=== PATIENT | male | born 1960 | race Two or more races ===

== ENCOUNTER 2024-06-04 09:44 | Emergency (ER) | payer OTHER ==
[~2024-06-04] VITALS: Ht 154.9 cm; Wt 86.2 kg
[2024-06-04 11:23] LABS: HEMATOCRIT 38.5 % (39.0-48.0); HEMOGLOBIN 13.1 g/dL (13-16.00); MEAN CELL VOLUME 92.9 fL (80.0-100.00); MEAN CORPUSCULAR HEMOGLOBIN 31.5 pg (27.00-32.0); MEAN CORPUSCULAR HGB CONC 33.9 g/dl (32.0-36.0); PLATELET COUNT 225 K/uL (150-450); RED BLOOD COUNT 4.15 M/uL (4.00-6.00); RED CELL DISTRIBUTION WIDTH 13.9 % (11.5-14.5)
[2024-06-04 11:46] LABS: PH,URINE 5.5 (5.0-8.0); URINE APPEARANCE Cloudy; URINE BILIRRUBIN Negative (NEGATIVE); URINE BLOOD Large; URINE COLOR Dark Yellow; URINE GLUCOSE Negative (NEGATIVE); URINE KETONE Trace (NEGATIVE); URINE LEUKOCYTE Moderate; URINE NITRATE Positive
[2024-06-04 11:51] LABS: URINE CAST 1.83 uL (0.0-1.40); URINE EPITHELIAL CELLS 13.7 uL (0.0-38.8); URINE RBC 111.4 uL (0.0-20.8)
[2024-06-04 12:12] LABS: CALCIUM 8.8 mg/dL (8.5-10.1); CREATININE SERUM 1.3 mg/dL (0.70-1.30); GFR 55.94; POTASSIUM 4.44 mEq/L (3.5-5.1)
[2024-06-04 12:14] LABS: URINE BACTERIA > 9821.5 uL (0.0-1933); URINE PROTEIN 100 (NEGATIVE)
[2024-06-04] MEDS ORDERED: CIPROFLOXACIN IN 5 % DEXTROSE 400 MG/200 ML PIGGYBAG IV STA (12:51)
[2024-06-04] MEDS ORDERED: CIPROFLOXACIN IN 5 % DEXTROSE 400 MG/200 ML PIGGYBAG IV ONE (12:56)
[2024-06-04] MEDS ORDERED: levoFLOXacin IN DEXTROSE 5 % 5 MG/ML PIGGYBAG IV SCH (13:00)
== END 2024-06-04 14:27 | disposition home or self-care (01) ==
LOC: ER 09:45
PROVIDERS: General Practice
DX: N39.0 Urinary tract infection, site not specified (principal); R50.9 Fever, unspecified; R30.0 Dysuria; Z91.013 Allergy to seafood; Z88.8 Allergy status to other drugs, medicaments and biological substances; Z20.822 Contact with and (suspected) exposure to COVID-19; B96.29 Other Escherichia coli [E. coli] as the cause of diseases classified elsewhere

== ENCOUNTER 2024-11-22 09:45 | Outpatient (CLI) | payer OTHER | END 2024-11-22 10:10 | disposition home or self-care (01) | LOC: SONOGRAMA 09:45 | PROVIDERS: ATTEND Orthopaedic Surgery | DX: S86.311A Strain of muscle(s) and tendon(s) of peroneal muscle group at lower leg level, right leg, initial encounter (principal) ==

== ENCOUNTER 2025-05-03 07:18 | Outpatient (CLI) | payer OTHER | END 2025-05-03 07:26 | disposition home or self-care (01) | LOC: SONOGRAMA 07:18 | PROVIDERS: ATTEND Urology | DX: C61 Malignant neoplasm of prostate (principal); N40.1 Benign prostatic hyperplasia with lower urinary tract symptoms; R97.20 Elevated prostate specific antigen [PSA] ==